=== PATIENT | female | born 1960 | race Caucasian/White ===

== ENCOUNTER 2019-09-25 23:02 | Emergency (ER) | payer BC ==
[~2019-09-25] VITALS: Ht 157.5 cm; Wt 79.5 kg
[2019-09-25 23:13] VITALS: Ht 157.5 cm; Wt 79.5 kg
[2019-09-25] MEDS ORDERED: GLUCOPHAGE500 MG PO (23:15)
[2019-09-25] MEDS ORDERED: BASAGLAR K100 UNIT/1 (23:15)
[2019-09-25] MEDS ORDERED: OMEPRAZOLE40 MG PO (23:16)
[2019-09-25] MEDS ORDERED: CHOLESTEROL MED (23:16)
[2019-09-25] MEDS ORDERED: LISINOPRIL40 MG PO (23:16)
[2019-09-25] MEDS ORDERED: ASCORBIC ACID500 MG (23:17)
[2019-09-25] MEDS ORDERED: DEPRESSION MED (23:17)
[2019-09-25 23:46] LABS: HEMOGLOBIN 14.2 g/dL (12-16); LYMPHOCYTES 12.8 % (15-50); MCV 90.9 fL (80.0-100.0); MEAN PLATELET VOLUME 10.8 fL (7.4-10.4); NEUTROPHILS 80.2 % (40-80); PLATELET COUNT 257 10x3/uL (130-400); RBC 4.73 10x6/uL (4.00-5.40); RDW 12.7 % (11.5-14.5); WBC 14.9 10x3/uL (4.8-10.8)
[2019-09-25 23:49] LABS: CALC OSMOLALITY 285 mosm/kg (275-300); CALCIUM 10.2 mg/dL (8.5-10.1); CHLORIDE - SERUM 98 mmol/L (98-107); GLUCOSE 296 mg/dL (74-106); POTASSIUM - SERUM 4.1 mmol/L (3.5-5.1); SODIUM 134 mmol/L (136-145); UREA NITROGEN 32 mg/dL (7-18); eGFR NON AFRICAN AMERICAN 27 mL/min (90-120)
[2019-09-26 00:04] LABS: ALBUMIN 4.7 g/dL (3.4-5.0); ALKALINE PHOSPHATASE 70 U/L (30-120); ALT (SGPT) 34 U/L (10-68); BILIRUBIN - TOTAL 0.51 mg/dL (0.2-1.3); C-REACTIVE PROTEIN 0.5 mg/dL (0.0-0.9); LIPASE 401 U/L (73-393); PRO BNP 273 pg/mL (0-125); PROTEIN - SERUM 8.8 g/dL (6.4-8.2); THYROID STIMULATING HORMONE 2.82 uIU/mL (0.36-3.74)
[2019-09-26 00:06] LABS: TROPONIN-I < 0.017 ng/mL (0.000-0.060)
[2019-09-26] MEDS ORDERED: ZOFRAN ODT4 MG/UDTAB PO (00:17)
[2019-09-26] MEDS ORDERED: LOMOTIL 2.5-0.1 EAC1 PO (00:17)
[2019-09-26 02:35] LABS: BILIRUBIN NEGATIVE (NEGATIVE); GLUCOSE NEGATIVE (NEGATIVE); KETONE NEGATIVE (NEGATIVE); NITRITE NEGATIVE (NEGATIVE); UROBILINOGEN NORMAL (NORMAL)
[2019-09-26 02:37] LABS: BACTERIA FEW /hpf (NEGATIVE); EPITHELIAL CELLS 0-5 /hpf (0-5); RED CELLS - URINE 0-5 /hpf (0-5); WHITE CELLS - URINE 0-5 /hpf (NEGATIVE)
[2019-09-26 03:13] VITALS: BP 143/80
== END 2019-09-26 03:13 | disposition home or self-care (01) ==
LOC: D.ER 23:02
PROVIDERS: Family Medicine
DX: E11.9 Type 2 diabetes mellitus without complications (principal); R11.2 Nausea with vomiting, unspecified; R19.7 Diarrhea, unspecified; Z79.84 Long term (current) use of oral hypoglycemic drugs; R10.9 Unspecified abdominal pain